=== PATIENT | male | born 1950 | race Caucasian/White ===

== ENCOUNTER 2017-05-20 04:27 | Emergency (ER) | payer MEDICARE, OTHER ==
[~2017-05-20] VITALS: Ht 190.5 cm; Wt 143.2 kg
[~2017-05-20 04:27] MED LIST: ATOR20TA9 PO; FLUT100D INH; HYDR25TA6 PO; MAGN84TA6 PO; METO200T47 PO; POTA20TA91 PO; TADA5TAB2 PO; TERA5CAP3 PO; TEST30SO IM
[2017-05-20] MEDS ORDERED: ACETAMINOPHEN 500 MG TABLET ONE (06:09)
[2017-05-20] MEDS ORDERED: ACETAMINOPHEN 500 MG TABLET PO ONE (06:30)
[2017-05-20] MEDS ORDERED: DEXAMETHASONE 4 MG TABLET ONE (07:26)
[2017-05-20] MEDS ORDERED: DEXAMETHASONE 4 MG TABLET PO ONE (07:30)
[2017-05-20 08:02] LABS: TROPONIN I < 0.015 ng/mL (0.000-0.045)
[2017-05-20 08:31] VITALS: BP 156/78
== END 2017-05-20 08:33 | disposition home or self-care (01) ==
LOC: ED 07:01
DX: J15.9 Unspecified bacterial pneumonia (principal); E78.00 Pure hypercholesterolemia, unspecified; I10 Essential (primary) hypertension; I48.91 Unspecified atrial fibrillation; Z88.0 Allergy status to penicillin
CPT/HCPCS: 36415; 71046; 83880; 84484; 87081; 87880; 93005; 99285

== ENCOUNTER 2019-06-08 07:15 | Inpatient (IN) | payer OTHER ==
[~2019-06-08] VITALS: Ht 188 cm; Wt 130.0 kg
[~2019-06-08 07:15] MED LIST changes: +AMLO5TAB4 PO; +ANAS1TAB49 PO; +APIX5TAB PO; +ASCO-96 PO; +ATOR20TA PO; +ATOR20TA37 PO; -ATOR20TA9 PO; +BACITRACIN 50,000 UNIT ONE; +BIOT25005 PO; +CARV6.2512 PO; +HEPARIN 1,000 UNITS/ML, 10ML ONE; +LIDOCAINE 1%-EPI 1:100K, 20ML ONE; +LISI5TAB7 PO; +LOSA1TAB22 PO; +LOSARTAN-HCTZ PO; +METO200T2 PO; +MULT-718 PO; +PAPAVERINE 30 MG/ML, 2ML ONE; +POTA90TA2 PO; +PROTAMINE SULFATE 10 MG/ML, 5ML ONE; +THROMBIN 20,000 UNIT VIAL TP ONE; +[UNRECOGNIZED DRUG - CODE] TP
[2019-06-08] MEDS ORDERED: LACTATED RINGERS 1,000 ML IV SCH (07:27)
[2019-06-08 07:37] VITALS: BP 125/83
[2019-06-08] MEDS ORDERED: CHLORHEXIDINE 15 ML UDC MM ONE (08:00)
[2019-06-08] MEDS ORDERED: OXYcodone 5 MG/5 ML ORAL.SOL UDC PO PRN (08:30)
[2019-06-08] MEDS ORDERED: LABETALOL 5MG/ML, 20ML IV PRN (08:30)
[2019-06-08] MEDS ORDERED: MEPERIDINE/PF 25MG/ML,1ML IVPush PRN (08:30)
[2019-06-08] MEDS ORDERED: FENTANYL PF 100 MCG/2ML IV PRN (08:30)
[2019-06-08] MEDS ORDERED: hydrALAzine 20 MG/ML, 1ML IV PRN (08:30)
[2019-06-08] MEDS ORDERED: HYDROmorphone 2 MG/ML, 1ML IVPush PRN (08:30)
[2019-06-08] MEDS ORDERED: PROMETHAZINE 25 MG/ML, 1ML IV PRN (08:30)
[2019-06-08] MEDS ORDERED: HALOPERIDOL 5 MG/ML IV PRN (08:30)
[2019-06-08] MEDS ORDERED: FENTANYL PF 250 MCG/5ML ONE (08:40)
[2019-06-08] MEDS ORDERED: LIDOCAINE 4%, 4 ML SYR/CANN TP ONE (08:45)
[2019-06-08] MEDS ORDERED: PHENYLEPHRINE 10 MG/ML ONE (08:46)
[2019-06-08] MEDS ORDERED: NITROGLYCERIN 5 MG/ML, 10ML ONE (08:49)
[2019-06-08] MEDS ORDERED: ONDANSETRON 2MG/ML, 2ML ONE (10:35)
[2019-06-08] MEDS ORDERED: ROCURONIUM 10MG/ML,5ML ONE (10:35)
[2019-06-08] MEDS ORDERED: DEXAMETHASONE 4 MG/ML, 1ML ONE (10:35)
[2019-06-08] MEDS ORDERED: CEFAZOLIN 1,000 MG ONE ×2 (10:35)
[2019-06-08] MEDS ORDERED: SUCCINYLCHOLINE 20 MG/ML, 10ML ONE (10:35)
[2019-06-08] MEDS ORDERED: NEOSTIGMINE 1 MG/ML, 10ML ONE (10:35)
[2019-06-08] MEDS ORDERED: GLYCOPYRROLATE 0.2MG/1ML, 5ML ONE (10:35)
[2019-06-08] MEDS ORDERED: PROPOFOL 10 MG/ML, 20ML ONE (10:35)
[2019-06-08] MEDS ORDERED: ACETAMINOPHEN 650 MG/20.3 ML UDC ONE (12:05)
[2019-06-08] MEDS ORDERED: OXYcodone 5 MG/5 ML ORAL.SOL UDC ONE (12:05)
[2019-06-08 14:15] VITALS: BP 138/76
[2019-06-08] MEDS ORDERED: morphine SULFATE 10 MG/ML, 1ML IV PRN (14:30)
[2019-06-08] MEDS ORDERED: HYDROcodone/APAP 5/325 TABLET PO PRN (14:30)
[2019-06-08] MEDS ORDERED: ANASTROZOLE MC SCH (15:00)
[2019-06-08] MEDS: CEFAZOLIN PMX 1GM/50ML 50 ML IVPB SCH (18:25)
[2019-06-08 20:20] VITALS: BP 138/89
[2019-06-08] MEDS ORDERED: ATORVASTATIN 20 MG TABLET PO SCH (21:00)
[2019-06-08] MEDS ORDERED: METOPROLOL SUCCINATE 100 MG TAB.ER.24H PO SCH (21:00)
[2019-06-08] MEDS ORDERED: AMLODIPINE 5 MG TABLET PO SCH (21:00)
[2019-06-08] MEDS: BIOTIN 2500 MCG HOMEMEDPO SCH (21:00)
[2019-06-08] MEDS: SODIUM CHLORIDE FLUSH 10ML SYR IVF SCH (22:08)
[2019-06-08] MEDS: POTASSIUM CHLORIDE 20 MEQ in LACTATED RINGERS 1,000 ML IV SCH (23:22)
[2019-06-09 00:14] VITALS: BP 148/85
[2019-06-09] MEDS: CEFAZOLIN PMX 1GM/50ML 50 ML IVPB SCH (02:34)
[2019-06-09 03:52] VITALS: BP 129/80
[2019-06-09] MEDS ORDERED: ENOXAPARIN 40 MG/0.4 ML SQ SCH (06:00)
[2019-06-09] MEDS: POTASSIUM CHLORIDE 20 MEQ in LACTATED RINGERS 1,000 ML IV SCH (07:38)
[2019-06-09] MEDS: SODIUM CHLORIDE FLUSH 10ML SYR IVF SCH (08:20)
[2019-06-09] MEDS: BIOTIN 2500 MCG HOMEMEDPO SCH (08:21)
[2019-06-09] MEDS ORDERED: ANASTROZOLE 1 MG TABLET PO SCH (09:00)
[2019-06-09] MEDS ORDERED: MULTIVITAMIN 1 TABLET PO SCH (09:00)
[2019-06-09] MEDS ORDERED: LOSARTAN 100 MG TAB PO SCH (09:00)
[2019-06-09] MEDS ORDERED: TESTOSTERONE HOMETP SCH (09:00)
[2019-06-09] MEDS ORDERED: ASCORBIC ACID 500 MG TABLET PO SCH (09:00)
[2019-06-09] MEDS ORDERED: [UNRECOGNIZED DRUG - OTHER] HOMETP SCH (09:00)
[2019-06-09] MEDS ORDERED: MAGNESIUM OXIDE 400 MG TABLET PO SCH (09:00)
== END 2019-06-09 10:40 | disposition home or self-care (01) | DRG 39 ==
LOC: ORIP 07:15 → 4NE 14:10
PROVIDERS: ADMIT Surgery; ATTEND Surgery
PROC: 03CK0ZZ Extirpation of Matter from Right Internal Carotid Artery, Open Approach (ICD-10-PCS; principal; 2019-06-08 09:30)
DX: I65.21 Occlusion and stenosis of right carotid artery (principal); E78.5 Hyperlipidemia, unspecified; I10 Essential (primary) hypertension; I48.91 Unspecified atrial fibrillation; Z88.0 Allergy status to penicillin; Z82.49 Family history of ischemic heart disease and other diseases of the circulatory system; Z83.3 Family history of diabetes mellitus
CPT/HCPCS: 36415; 86850; 86900; 88300; C1729; G0378; J0690; J1100; J1644; J1650; J2405; J2704; J2710; J2720; J3010; J3480; J3490; J0330; J2370; J2440; J7120

== ENCOUNTER 2019-06-14 14:14 | Inpatient (IN) | payer MEDICARE ==
[~2019-06-14] VITALS: Ht 188 cm; Wt 125.0 kg
[~2019-06-14 14:14] MED LIST changes: -BACITRACIN 50,000 UNIT ONE; -HEPARIN 1,000 UNITS/ML, 10ML ONE; -LIDOCAINE 1%-EPI 1:100K, 20ML ONE; -PAPAVERINE 30 MG/ML, 2ML ONE; -PROTAMINE SULFATE 10 MG/ML, 5ML ONE; -THROMBIN 20,000 UNIT VIAL TP ONE
--- NOTE | 2019-06-14 14:31 | NUR ---
THIS IS A 68 YO M BIB EMS FROM HOME W/ C/O OF EPISODE OF ALTERED MENTAL STATUS. PT REPORTS HE WAS WALKING TO THE BR WHEN HE STARTED TO FEEL DIZZY AND DIAPHORETIC, SAT DOWN ON COUCH AND PUT HIS HEAD BACK, PT REPORTS HE DOES NOT REMEMBER ANYTHING AFTER THAT. EMS REPORTS THAT STATED SHE TRIED TALKING TO PT BUT HE WAS NOT RESPONDING, EYES GLOSSED OVER BUT OPEN. PT STATES HE WAS ONLY "OUT FOR A FEW SECONDS". EMS REPORTS PT WAS IBRAHIMA IN 30'S AND HYPOTENSIVE AT 70/40. EMS GAVE 1500ML BOLUS OF NS. PTS VS NOW WDL. PT REPORTS EATING OATMEAL AND OJ TODAY. NO HX OF SIMILAR EPISODE. PT HAD RT CAROTID ENDARTERECTOMY ON WEDNESDAY OF LAST WEEK. PT CONNECTED TO MONITORING, CALL LIGHT IN REACH, SIDE RAILS UPX2. AWAITING ED EVAL.
--- NOTE | 2019-06-14 14:53 | NUR ---
LAB IN ROOM.
[2019-06-14] MEDS ORDERED: SODIUM CHLORIDE FLUSH 10ML SYR IVF ONE (15:00)
[2019-06-14] MEDS ORDERED: SODIUM CHLORIDE 0.9% 1,000ML IVBOLUS ONE (15:00)
[2019-06-14 15:06] LABS: MEAN CORPUSCULAR HEMOGLOBIN 28.6 pg (27.5-34.5); MEAN CORPUSCULAR VOLUME 86.5 fL (81-97); MEAN PLATELET VOLUME 7.3 fL (7.4-10.4); PLATELET COUNT 354 x10^3/uL (130-400); RED BLOOD COUNT 4.66 x10^6/uL (4.38-5.82); RED CELL DISTRIBUTION WIDTH 15.1 % (9.4-14.8)
[2019-06-14 15:07] LABS: MD YES
[2019-06-14 15:15] LABS: ALBUMIN 3.7 g/dL (3.4-5.0); ANION GAP 5 mmol/L (5-15); CALCIUM 9.4 mg/dL (8.5-10.1); CHLORIDE 100 mmol/L (98-107); CREATININE 1.49 mg/dL (0.7-1.3)
[2019-06-14 15:19] LABS: TROPONIN I < 0.015 ng/mL (0.000-0.045)
[2019-06-14 15:35] LABS: BAND#(MANUAL) 1.45 x10^3/uL; BANDS%(MANUAL) 6 % (0-7); BASOS#(MANUAL) 0.24 x10^3/uL (0-0.1); BASOS% (MANUAL) 1 % (0-1); LYMPH#(MANUAL) 2.41 x10^3/uL (1-3.4); LYMPHS% (MANUAL) 10 % (22-44); METAMYELOCYTES# (MANUAL) 0.24 x10^3/uL (0-0); METAMYELOCYTES% (MANUAL) 1 % (0-1); MONOS#(MANUAL) 2.65 x10^3/uL (0.3-2.7); MONOS% (MANUAL) 11 % (2-9); SEG#(MANUAL) 17.11 x10^3/uL (1.8-6.8); SEGS% (MANUAL) 71 % (42-75)
[2019-06-14 15:36] LABS: <PLATELET ESTIMATE> ADEQUATE; <PLT MORPHOLOGY> NORMAL PLT MORPH; ANISOCYTOSIS 1+
--- NOTE | 2019-06-14 15:40 | NUR ---
URINE COLLECTED AND SENT TO LAB. PT TO CT.
[2019-06-14 15:46] LABS: MICROSCOPIC NOT IND
[2019-06-14 15:49] LABS: CULTURE INDICATED? NO
[2019-06-14] MEDS ORDERED: OMNIPAQUE 350 MG/ML, 100ML BOTTLE ONE (16:03)
[2019-06-14] MEDS ORDERED: POTA90TA2 PO (16:16)
[2019-06-14] MEDS ORDERED: ANDROGEL TP (16:16)
[2019-06-14] MEDS ORDERED: AMLO10TA8 PO (16:16)
[2019-06-14] MEDS ORDERED: LOSA1TAB22 PO (16:16)
[2019-06-14] MEDS ORDERED: ALLO300T PO (16:16)
[2019-06-14] MEDS ORDERED: METO200T47 PO (16:16)
[2019-06-14] MEDS ORDERED: TADA20TA PO (16:16)
--- NOTE | 2019-06-14 16:16 | NUR ---
MED REC DONE.
--- NOTE | 2019-06-14 17:14 | NUR ---
PT RESTING ON [employer] W/ CALL LIGHT IN REACH. VS STABLE. DENIES FURTHER NEEDS AT THIS TIME.
--- NOTE | 2019-06-14 18:11 | NUR ---
PT RESTING ON GURNEY W/ CALL LIGHT IN REACH. VS STABLE. AWARE OF POC FOR ADMIT.
--- NOTE | 2019-06-14 19:22 | NUR ---
ADMITTING PROVIDER IN ROOM.
[2019-06-14] MEDS ORDERED: DOCUSATE 100 MG CAPSULE PO PRN (20:00)
[2019-06-14] MEDS ORDERED: ACETAMINOPHEN 325 MG TABLET PO PRN (20:00)
[2019-06-14] MEDS ORDERED: ONDANSETRON ODT 4 MG PO PRN (20:00)
[2019-06-14] MEDS: BIOTIN 2500 MCG PO SCH (20:45)
[2019-06-14 21:08] VITALS: BP 147/83
[2019-06-14] MEDS: APIXABAN 5 MG TABLET PO SCH (21:09)
[2019-06-14] MEDS: ATORVASTATIN 20 MG TABLET PO SCH (21:09)
[2019-06-14 21:10] LABS: TROPONIN I < 0.015 ng/mL (0.000-0.045)
[2019-06-15 02:00] LABS: TROPONIN I < 0.015 ng/mL (0.000-0.045)
[2019-06-15 02:31] VITALS: BP 116/76
[2019-06-15 06:47] VITALS: BP 132/85
[2019-06-15 07:12] LABS: MEAN CORPUSCULAR HEMOGLOBIN 28.5 pg (27.5-34.5); MEAN CORPUSCULAR HGB CONC 33.1 g/dL (33.2-36.2); MEAN CORPUSCULAR VOLUME 86.1 fL (81-97); MEAN PLATELET VOLUME 7.7 fL (7.4-10.4); PLATELET COUNT 333 x10^3/uL (130-400); RED BLOOD COUNT 4.45 x10^6/uL (4.38-5.82); RED CELL DISTRIBUTION WIDTH 15.2 % (9.4-14.8)
[2019-06-15 07:14] LABS: ANION GAP 9 mmol/L (5-15); CHLORIDE 100 mmol/L (98-107)
[2019-06-15 07:41] LABS: BASOPHILS # (AUTO) 0.05 x10^3/uL (0-0.1); BASOPHILS % (AUTO) 0 % (0-1); EOSINOPHILS # (AUTO) 0.16 x10^3/uL (0-0.4); EOSINOPHILS % (AUTO) 1 % (1-7); LYMPHOCYTES # (AUTO) 1.84 x10^3/uL (1-3.4); LYMPHOCYTES % (AUTO) 10 % (22-44); MD SCAN; MONOCYTES # (AUTO) 1.31 x10^3/uL (0.2-0.8); MONOCYTES % (AUTO) 7 % (2-9); NEUTROPHILS # (AUTO) 14.84 x10^3/uL (1.8-6.8); NEUTROPHILS % (AUTO) 82 % (42-75)
[2019-06-15 07:47] LABS: TROPONIN I < 0.015 ng/mL (0.000-0.045)
[2019-06-15] MEDS: APIXABAN 5 MG TABLET PO SCH ×2 (07:55→20:34)
[2019-06-15] MEDS: ALLOPURINOL 300 MG TABLET PO SCH (07:55)
[2019-06-15] MEDS: ASCORBIC ACID 500 MG TABLET PO SCH (07:56)
[2019-06-15] MEDS: MAGNESIUM OXIDE 400 MG TABLET PO SCH (07:56)
[2019-06-15] MEDS: BIOTIN 2500 MCG PO SCH ×2 (08:45→20:35)
[2019-06-15 12:33] VITALS: BP 118/75
[2019-06-15] MEDS ORDERED: POTASSIUM CHLORIDE 20 MEQ TAB.ER.PRT PO ONE (17:30)
[2019-06-15 19:23] VITALS: BP 137/80
[2019-06-15] MEDS: ATORVASTATIN 20 MG TABLET PO SCH (20:34)
[2019-06-16 00:35] VITALS: BP 124/81
[2019-06-16 07:04] VITALS: BP 127/81
[2019-06-16] MEDS: BIOTIN 2500 MCG PO SCH (07:10)
[2019-06-16] MEDS: ALLOPURINOL 300 MG TABLET PO SCH (07:35)
[2019-06-16] MEDS: MAGNESIUM OXIDE 400 MG TABLET PO SCH (07:35)
[2019-06-16] MEDS: APIXABAN 5 MG TABLET PO SCH (07:35)
[2019-06-16] MEDS: ASCORBIC ACID 500 MG TABLET PO SCH (07:35)
[2019-06-16 07:49] LABS: BASOPHILS # (AUTO) 0.05 x10^3/uL (0-0.1); BASOPHILS % (AUTO) 0 % (0-1); EOSINOPHILS # (AUTO) 0.07 x10^3/uL (0-0.4); EOSINOPHILS % (AUTO) 1 % (1-7); LYMPHOCYTES # (AUTO) 2.17 x10^3/uL (1-3.4); LYMPHOCYTES % (AUTO) 14 % (22-44); MD NO; MEAN CORPUSCULAR HEMOGLOBIN 28.4 pg (27.5-34.5); MEAN CORPUSCULAR HGB CONC 32.2 g/dL (33.2-36.2); MEAN CORPUSCULAR VOLUME 88.1 fL (81-97); MEAN PLATELET VOLUME 7.7 fL (7.4-10.4); MONOCYTES # (AUTO) 1.18 x10^3/uL (0.2-0.8); MONOCYTES % (AUTO) 8 % (2-9); NEUTROPHILS % (AUTO) 78 % (42-75); PLATELET COUNT 289 x10^3/uL (130-400); RED BLOOD COUNT 4.39 x10^6/uL (4.38-5.82); RED CELL DISTRIBUTION WIDTH 15.1 % (9.4-14.8)
[2019-06-16 07:57] LABS: ANION GAP 8 mmol/L (5-15); CHLORIDE 101 mmol/L (98-107)
[2019-06-16 08:01] LABS: ALANINE AMINOTRANSFERASE 34 U/L (12-78); ALKALINE PHOSPHATASE 140 U/L (45-117); BILIRUBIN,TOTAL 1.1 mg/dL (0.2-1.0); CREATININE 1.15 mg/dL (0.7-1.3); TOTAL PROTEIN 6.9 g/dL (6.4-8.2)
[2019-06-16] MEDS ORDERED: ANASTROZOLE 1 MG TABLET PO SCH (09:00)
[2019-06-16] MEDS ORDERED: METOPROLOL TARTRATE 25 MG TAB PO SCH (11:00)
[2019-06-16 14:13] VITALS: BP 130/89
[2019-06-16] MEDS ORDERED: METO25TA35 PO (15:17)
== END 2019-06-16 16:06 | disposition home health service (06) | DRG 73 ==
LOC: ED 15:01 → EDIP 18:28 → 4EST 20:00
PROVIDERS: ATTEND Internal Medicine
DX: G90.8 Other disorders of autonomic nervous system (principal); N17.0 Acute kidney failure with tubular necrosis; I48.20 Chronic atrial fibrillation, unspecified; D68.69 Other thrombophilia; I95.2 Hypotension due to drugs; I50.9 Heart failure, unspecified; E78.00 Pure hypercholesterolemia, unspecified; D72.829 Elevated white blood cell count, unspecified; T50.995A Adverse effect of other drugs, medicaments and biological substances, initial encounter; G47.33 Obstructive sleep apnea (adult) (pediatric); I11.0 Hypertensive heart disease with heart failure; Z79.01 Long term (current) use of anticoagulants; Z87.01 Personal history of pneumonia (recurrent); Z79.899 Other long term (current) drug therapy; Z80.1 Family history of malignant neoplasm of trachea, bronchus and lung; Z80.49 Family history of malignant neoplasm of other genital organs; Z80.0 Family history of malignant neoplasm of digestive organs; Z88.0 Allergy status to penicillin; Z83.3 Family history of diabetes mellitus; Z82.49 Family history of ischemic heart disease and other diseases of the circulatory system; Y92.89 Other specified places as the place of occurrence of the external cause
CPT/HCPCS: 36415; 71275; 80048; 80053; 81003; 82040; 83605; 83735; 83880; 84100; 84145; 84484; 85025; 87040; 93005; 96360; G0378; Q9967; J7030